=== PATIENT | female | born 1980 | race Caucasian/White ===

== ENCOUNTER 2020-12-22 18:09 | Emergency (ER) | payer BC ==
[2020-12-22 18:54] LABS: Bilirubin Negative (Negative); Blood, Urine Trace (Negative); Clarity Clear (Clear); Glucose, Urine (Dipstick) Negative (Negative); Ketone, Urine 15 mg/dL (Negative); Leukocyte Trace (Negative); Nitrite Negative (Negative); Protein, Urine (Dipstick) Trace mg/dL (Neg-Trace); Urobilinogen 0.2 mg/dL (Less than 2)
[2020-12-22 19:06] LABS: Bacteria/HPF 1+ HPF (None Seen); RBC/HPF 0-3 HPF (0-3); Squamous Epithelial 0-3 HPF (0-3)
[2020-12-22 19:07] LABS: Renal Epithelial 0-3 HPF (None Seen)
[2020-12-22 19:09] LABS: BHCG - Serum Negative (NEGATIVE); Pregs Control Bar Appear? YES (CONTROL BAR)
[2020-12-22 19:11] LABS: Hemoglobin 12.4 g/dL (12.0-16.0); Mean Corpuscular HGB CONC 33.7 g/dL (32.0-36.0); Mean Corpuscular Hemoglobin 31.8 pg (27.0-31.0); Mean Corpuscular Volume 94.4 fL (78.0-98.0); Mean Platelet Volume 7.3 fL (7.4-10.4); Platelet Count 209 thou/uL (130-400); RBC Distribution Width 11.3 % (11.5-14.5); Red Blood Cell (RBC) Count 3.89 mill/uL (4.20-5.40); White Blood Cell (WBC) Count 11.2 thou/uL (4.8-10.8)
[2020-12-22 19:18] LABS: ALT (SGPT) 32 U/L (8-55); AST (SGOT) 25 U/L (5-34); Albumin 3.3 g/dL (3.5-5.0); Alkaline Phosphatase 106 U/L (40-110); Anion Gap 12 mmol/L (10-20); BUN (Urea Nitrogen) 5 mg/dL (7.0-18.7); Bilirubin, Total 0.7 mg/dL (0.2-1.2); Calc. Creatinine Clearance 0 mL/min (70-130); Calcium 9.2 mg/dL (7.8-10.44); Carbon Dioxide 26 mmol/L (22-29); Chloride 100 mmol/L (98-107); Globulin 3.7 g/dL (2.4-3.5); Glucose 105 mg/dL (70-105); Potassium 3.4 mmol/L (3.5-5.1); Sodium 135 mmol/L (136-145)
[2020-12-22 19:32] LABS: Band 10 % (5-11); Eosinophils 1 % (0-10); Lymphocytes 10 % (21-51); MDiff Complete? YES; Monocytes 12 % (0-10); Neutrophil 66 % (42-75); Platelet Morphology Comment Appears Adequate; Reactive Lymphocytes 1 % (0-10); Toxic Granulation SLIGHT; Vacuoles SLIGHT
[2020-12-22] MEDS ORDERED: Sodium Chloride 0.9% 1,000 ML ONE (19:35)
[2020-12-23 15:31] LABS: SARS-CoV-2 PCR by NAA Not Detected (NotDetected)
== END 2020-12-22 20:40 | disposition home or self-care (01) ==
LOC: NAV ERS 18:09
DX: N39.0 Urinary tract infection, site not specified (principal); E86.0 Dehydration; M79.10 Myalgia, unspecified site; M19.90 Unspecified osteoarthritis, unspecified site; E05.81 Other thyrotoxicosis with thyrotoxic crisis or storm; Z20.822 Contact with and (suspected) exposure to COVID-19; Z79.899 Other long term (current) drug therapy
CPT/HCPCS: 80053; 81003; 81015; 84443; 84703; 85025; 87086; 99283; J7050; U0003; U0005

== ENCOUNTER 2022-06-25 20:42 | Emergency (ER) | payer BC | END 2022-06-25 22:09 | disposition home or self-care (01) | LOC: NAV ERS 20:42 | DX: M25.561 Pain in right knee (principal) ==

== ENCOUNTER 2023-08-01 15:31 | Outpatient (CLI) | payer BC | END 2023-08-01 15:32 | disposition home or self-care (01) | LOC: NAV RAD 15:31 | PROVIDERS: ATTEND Nurse Practitioner Family | DX: S09.90XA Unspecified injury of head, initial encounter (principal); M54.2 Cervicalgia; M54.6 Pain in thoracic spine; M43.8X2 Other specified deforming dorsopathies, cervical region | CPT/HCPCS: 72040; 72072 ==